=== PATIENT | male | born 1965 | race Caucasian/White ===

== ENCOUNTER 2017-04-14 00:49 | Emergency (ER) | payer OTHER ==
[~2017-04-14] VITALS: Ht 177.8 cm; Wt 67.0 kg
[2017-04-14 00:59] VITALS: BP 122/77; PULSE 82; RESP 18; TEMP 98.5
[2017-04-14] MEDS ORDERED: LORazepam 2 MG/ML VIAL IM ONE (01:15)
--- NOTE | 2017-04-14 01:22 | PD ---
HPI Chief Complaint: Medical Clearance Time Seen by Provider: 01:16 Travel History International Travel<30 days: No Contact w/Intl Traveler<30days: No Traveled to known affect area: No History of Present Illness HPI 51-year-old white male presents to emergency department in police custody for medical clearance to go to intermediate. The patient states that he has shortness of breath and feels like he cannot breathe. He has a history of PTSD and claustrophobia. The patient's complaint of shortness of breath developed after being handcuffed and placed into the wagon. Prior to this the patient was in his normal state of health. Patient states that he also has history of COPD and smokes. He does not take any pulmonary medications. He has not been sick recently. History of prior stroke. Denies any suicidal or homicidal ideation. PFSH Past Medical History Narrative Medical Bipolar, PTSD, claustrophobia, CVA, COPD Autoimmune Disease: No Bipolar Disorder: Yes Cancer: No Cardiovascular Problems: No Cerebrovascular Accident: Yes Diminished Hearing: No Endocrine: No Genitourinary: No Immune Disorder: No Musculoskeletal: Yes Neurologic: No Psychiatric: Yes (BIOPOLAR AND MANIC DEPRESSION ) Reproductive: No Respiratory: Yes Tetanus Vaccination: < 5 Years Past Surgical History Abdominal Surgery: Yes (SPLENECTOMY 1991) Other Surgery: Yes Social History Alcohol Use: Yes (6 PACK A WEEK BEER) Tobacco Use: Yes (PACK A DAY) Substance Use: Yes (ETOH) Allergies-Medications (Allergen,Severity, Reaction): Coded Allergies: No Known Allergies (Unverified , 04/14/17) Reported Meds & Prescriptions Reported Meds & Active Scripts Active No Active Prescriptions or Reported Medications Review of Systems ROS Limitations: Intoxication Physical Exam Narrative GENERAL: Well-developed, well-nourished in no acute distress. Nontoxic appearing. Patient is very anxious appearing. Patient smells of EtOH and admits to alcohol consumption prior HEAD: Normocephalic, atraumatic. EYES: Pupils equal round and reactive. Extraocular motions intact. No scleral icterus. No injection or drainage. ENT: TMs clear without erythema. The external auditory canals clear. Nose: clear . Posterior pharynx is pink and moist. No tonsillar edema or exudate. Uvula midline. Airway patent. NECK: Trachea midline.Supple, nontender, moves head freely. No central bony tenderness or spasm. CARDIOVASCULAR: Regular rate and rhythm without murmurs, gallops, or rubs. RESPIRATORY: Breath sounds decreased but clear. Prolonged expiratory phase. No wheezes or Rales. GASTROINTESTINAL: Abdomen soft, non-tender, nondistended. No hepato-splenomegaly , or palpable masses. No guarding. EXTREMITIES: No clubbing, cyanosis, or edema. No joint tenderness, effusion, or edema noted. BACK: Nontender without deformity or crepitance. No flank tenderness. Data Data Last Documented VS Vital Signs Date Time Temp Pulse Resp B/P Pulse Ox O2 Delivery O2 Flow Rate FiO2 04/14/17 00:59 98.5 82 18 122/77 Orders Lorazepam Inj (Ativan Inj) (04/14/17 01:15) [facility] Medical Decision Making Medical Screen Exam Complete: Yes Emergency Medical Condition: Yes Medical Record Reviewed: Yes Differential Diagnosis Differential diagnoses: Asthma, COPD, anxiety Narrative Course The patient is having anxiety reaction after being arrested. He is offered 2 mg of Ativan IM which she has declined. His vital signs are normal. He is saturating 96% on room air. He is not tachycardic. His lungs are clear without wheezing. The patient is been medically cleared. This is medical clearance to go to intermediate Diagnosis Primary Impression: Medical clearance for incarceration Additional Impression: Anxiety reaction Patient Instructions: General Instructions Additional Instructions: Rest. Stop smoking. Avoid alcohol. Do not operate a car any heavy machinery under the influence of alcohol. Follow-up with a medical doctor in one week. Return to the ER for emergencies. Scripts No Active Prescriptions or Reported Meds Disposition: [address] LAW ENFORCEMNT Condition: Stable Jayden Herrera Apr 14, 2017 01:22
== END 2017-04-14 01:47 ==
LOC: NEPD 00:49
DX: Z02.89 Encounter for other administrative examinations (principal); F41.1 Generalized anxiety disorder; J44.9 Chronic obstructive pulmonary disease, unspecified; F31.9 Bipolar disorder, unspecified; F43.10 Post-traumatic stress disorder, unspecified; F17.200 Nicotine dependence, unspecified, uncomplicated; Z86.73 Personal history of transient ischemic attack (TIA), and cerebral infarction without residual deficits
CPT/HCPCS: 99283

== ENCOUNTER 2017-06-26 14:02 | Emergency (ER) | payer SELFPAY ==
[~2017-06-26] VITALS: Ht 177.8 cm; Wt 59.0 kg
[2017-06-26 14:04] VITALS: BP 142/79; PULSE 98; RESP 16; TEMP 98.8; O2SAT 99
[2017-06-26] MEDS ORDERED: HALO100P IM (14:17)
[2017-06-26] MEDS ORDERED: SERO100T PO (14:17)
[2017-06-26] MEDS ORDERED: GABA100C4 PO (14:17)
--- NOTE | 2017-06-26 14:54 | PD ---
HPI Chief Complaint: Chest Pain Time Seen by Provider: 14:32 Travel History International Travel<30 days: No Contact w/Intl Traveler<30days: No Traveled to known affect area: No History of Present Illness HPI He complains of cough bringing up some yellowish colored phlegm. He has had some runny nose and congestion as well. He denies fever. He also complains of some anterior chest discomfort. Worse when he coughs or presses on it. Severity is moderate. No alleviating factors. Duration 3 days. He is a cigarette smoker. History of COPD PFSH Past Medical History Autoimmune Disease: No Bipolar Disorder: Yes Cancer: No Cardiovascular Problems: No Cerebrovascular Accident: Yes Diminished Hearing: No Endocrine: No Genitourinary: No Immune Disorder: No Musculoskeletal: Yes Neurologic: No Psychiatric: Yes (BIOPOLAR AND MANIC DEPRESSION ) Reproductive: No Respiratory: Yes Tetanus Vaccination: < 5 Years Past Surgical History Abdominal Surgery: Yes (SPLENECTOMY 1991) Other Surgery: Yes Social History Alcohol Use: Yes (6 PACK A WEEK BEER) Tobacco Use: Yes (PACK A DAY) Substance Use: No Allergies-Medications (Allergen,Severity, Reaction): Coded Allergies: codeine (Verified Adverse Reaction, Severe, nausea, 06/26/17) Reported Meds & Prescriptions Reported Meds & Active Scripts Active Reported Haldol Decanoate Inj (Haloperidol Decanoate) 100 Mg/Ml Inj 100 Mg IM Q28D Gabapentin 100 Mg Cap 100 Mg PO TID Seroquel (Quetiapine Fumarate) 100 Mg Tab 100 Mg PO HS Review of Systems General / Constitutional: No: Fever Eyes: No: Visual changes HENT: Positive: Rhinorrhea, Congestion, No: Headaches Cardiovascular: Positive: Chest Pain or Discomfort Respiratory: Positive: Cough, Shortness of Breath Gastrointestinal: No: Abdominal Pain Genitourinary: No: Dysuria Musculoskeletal: No: Pain Skin: No Rash Neurologic: No: Weakness Psychiatric: No: Depression Endocrine: No: Polydipsia Hematologic/Lymphatic: No: Easy Bruising Physical Exam Narrative GENERAL: Well-nourished, well-developed patient in no apparent distress. SKIN: Focused skin assessment reveals no rash and nodules. Skin is Warm and dry. HEAD: Atraumatic. Normocephalic. EYES: Pupils equal and round. No scleral icterus. No injection or drainage. ENT: No nasal bleeding or discharge. Mucous membranes pink and moist. NECK: Trachea midline. No JVD. CARDIOVASCULAR: Regular rate and rhythm. No murmur appreciated. RESPIRATORY: No accessory muscle use. Clear to auscultation. Breath sounds equal bilaterally. GASTROINTESTINAL: Abdomen soft, non-tender, nondistended. Hepatic and splenic margins not palpable. MUSCULOSKELETAL: No obvious deformities. No clubbing. No cyanosis. No edema. Chest wall is tender to palpation NEUROLOGICAL: Awake and alert. No obvious cranial nerve deficits. Motor grossly within normal limits. Normal speech. PSYCHIATRIC: Appropriate mood and affect; insight and judgment questionable . Data Data Last Documented VS Vital Signs Date Time Temp Pulse Resp B/P (MAP) Pulse Ox O2 Delivery O2 Flow Rate FiO2 06/26/17 14:40 20 98 Room Air 06/26/17 14:04 98.8 98 142/79 (100) Orders Orders Chest, Single Ap (06/26/17 ) Electrocardiogram (06/26/17 ) Iv Access Insert/Monitor (06/26/17 14:41) Complete Blood Count With Diff (06/26/17 14:41) Basic Metabolic Panel (Bmp) (06/26/17 14:41) Ckmb (Isoenzyme) Profile (06/26/17 14:41) Troponin I (06/26/17 14:41) Labs Laboratory Tests Test 06/26/17 14:55 White Blood Count 12.7 TH/MM3 Red Blood Count 4.65 MIL/MM3 Hemoglobin 14.2 GM/DL Hematocrit 43.1 % Mean Corpuscular Volume 92.7 FL Mean Corpuscular Hemoglobin 30.4 PG Mean Corpuscular Hemoglobin Concent 32.9 % Red Cell Distribution Width 13.1 % Platelet Count 387 TH/MM3 Mean Platelet Volume 8.0 FL Neutrophils (%) (Auto) 69.2 % Lymphocytes (%) (Auto) 19.1 % Monocytes (%) (Auto) 8.4 % Eosinophils (%) (Auto) 2.3 % Basophils (%) (Auto) 1.0 % Neutrophils # (Auto) 8.8 TH/MM3 Lymphocytes # (Auto) 2.4 TH/MM3 Monocytes # (Auto) 1.1 TH/MM3 Eosinophils # (Auto) 0.3 TH/MM3 Basophils # (Auto) 0.1 TH/MM3 CBC Comment DIFF FINAL Differential Comment Blood Urea Nitrogen 13 MG/DL Creatinine 0.91 MG/DL Random Glucose 89 MG/DL Calcium Level 8.7 MG/DL Sodium Level 139 MEQ/L Potassium Level 4.1 MEQ/L Chloride Level 103 MEQ/L Carbon Dioxide Level 31.3 MEQ/L Anion Gap 5 MEQ/L Estimat Glomerular Filtration Rate 88 ML/MIN Total Creatine Kinase 59 U/L Troponin I LESS THAN 0.02 NG/ML MDM Medical Decision Making Medical Screen Exam Complete: Yes Emergency Medical Condition: Yes Medical Record Reviewed: Yes Differential Diagnosis Bronchitis, pneumonia, COPD, costochondritis, ACS Narrative Course I have reviewed the patient's electronic medical record. Reviewed his last visit here for medical clearance before being taken to custodial IV placed I reviewed the EKG which shows sinus rhythm without ST elevation I reviewed the chest x-ray is normal Extended cardiac monitoring shows sinus rhythm without ectopy CBC is normal Metabolic profile is normal CK is normal Troponin is normal Workup here is entirely negative. Patient has an acute bronchitis. Given the fact he is an active smoker and has had a splenectomy I will prescribe him some antibiotics. This could be viral. His chest pain is musculoskeletal and readily reproducible and clearly not requiring inpatient cardiac evaluation Diagnosis Primary Impression: Acute bronchitis Qualified Codes: J20.9 - Acute bronchitis, unspecified Additional Impression: Musculoskeletal chest pain Additional Instructions: The patient was advised to follow up with their physician and return if they worsen. Stop smoking Med/Other Pt SpecificInfo: Prescription(s) given Disposition: 01 DISCHARGE HOME Condition: Stable Selvin Watson MD Jun 26, 2017 14:54
[2017-06-26 15:15] LABS: AUTOMATED NEUTROPHIL # 8.8 TH/MM3 (1.8-7.7); BASOPHIL # 0.1 TH/MM3 (0-0.2); EOSINOPHIL # 0.3 TH/MM3 (0-0.4); EOSINOPHIL % 2.3 % (0.0-4.0); HEMATOCRIT 43.1 % (39.0-51.0); HEMO FLAGS DIFF FINAL; LYMPH % 19.1 % (9.0-44.0); LYMPHOCYTE # 2.4 TH/MM3 (1.0-4.8); MEAN CELL VOLUME 92.7 FL (80.0-100.0); MEAN CORPUSCULAR HEMOGLOBIN 30.4 PG (27.0-34.0); MEAN CORPUSCULAR HGB CONC 32.9 % (32.0-36.0); MONO % 8.4 % (0.0-8.0); NEUT % 69.2 % (16.0-70.0); PLATELET COUNT 387 TH/MM3 (150-450); RED BLOOD COUNT 4.65 MIL/MM3 (4.50-5.90); RED CELL DISTRIBUTION WIDTH 13.1 % (11.6-17.2); WHITE BLOOD COUNT 12.7 TH/MM3 (4.0-11.0)
--- NOTE | 2017-06-26 15:37 | RADRPT ---
EXAM DATE/TIME: 06/26/2017 15:05 [facility] COMPARISON: CHEST SINGLE AP, April 07, 2014, 13:40. INDICATIONS : Shortness of breath. MEDICAL HISTORY : None. SURGICAL HISTORY : None. ENCOUNTER: Initial ACUITY: 1 day PAIN SCORE: 0/10 LOCATION: Bilateral chest FINDINGS: A single view of the chest demonstrates the lungs to be symmetrically aerated without evidence of mas s, infiltrate or effusion. The cardiomediastinal contours are unremarkable. Osseous structures are intact. CONCLUSION: No evidence of acute cardiopulmonary disease. Jesus Alston MD on June 26, 2017 at 15:35 Board Certified Radiologist. This report was verified electronically.
[2017-06-26 15:38] LABS: ANION GAP 5 MEQ/L (5-15); BICARBONATE 31.3 MEQ/L (21.0-32.0); BLOOD UREA NITROGEN 13 MG/DL (7-18); CHLORIDE 103 MEQ/L (98-107); GLOMERULAR FILTRATION RATE 88 ML/MIN (>89); POTASSIUM 4.1 MEQ/L (3.5-5.1); SODIUM (NA) 139 MEQ/L (136-145)
[2017-06-26 15:43] LABS: CREATINE KINASE 59 U/L (39-308)
[2017-06-26] MEDS ORDERED: BACT800T5 PO (16:56)
[2017-06-26] MEDS ORDERED: VENTAER INH (16:56)
--- NOTE | 2017-06-27 17:19 | EKG ---
Date Performed: 06/26/2017 Time Performed: 14:47:25 PTAGE: 52 years EKG: Sinus rhythm LEFT ATRIAL ABNORMALITY POOR R WAVE PROGRESSION, LIKELY DUE TO LEAD PLACEMENT CANNOT EXCLUDE OLD ANT EROSEPTAL INFARCT, BUT LEAD PLACEMENT MORE LIKELY Compared to prior tracing no significant change ABN ORMAL ECG PREVIOUS TRACING : 04/07/2014 13.38 DOCTOR: Jabari Baig Interpretating Date/Time 06/27/2017 17:19:02
== END 2017-06-26 17:23 | disposition home or self-care (01) ==
LOC: NEPD 14:02
DX: R94.31 Abnormal electrocardiogram [ECG] [EKG] (principal); J20.9 Acute bronchitis, unspecified; J44.9 Chronic obstructive pulmonary disease, unspecified; F31.9 Bipolar disorder, unspecified; F17.200 Nicotine dependence, unspecified, uncomplicated; Z86.73 Personal history of transient ischemic attack (TIA), and cerebral infarction without residual deficits; Z79.899 Other long term (current) drug therapy
CPT/HCPCS: 71010; 80048; 82550; 84484; 85025; 93005